=== PATIENT | female | born 1985 | race Caucasian/White ===

== ENCOUNTER → 2017-06-13 | Outpatient (CLI) | payer OTHER ==
[~2017-06-13] MED LIST: ACHYD1T PO; FRS325T PO; IBP800T PO; PREN-115 PO
--- NOTE | 2017-06-13 09:40 | Diagnostic Imaging Report ---
OB ultrasound. INDICATION: Spotting. FINDINGS: There is suggestion of an intrauterine with a gestational sac with thickened decidua reaction seen. The mean sac diameter is 0.6 CM. No embryo or yolk sac is seen. The sac diameter would correspond with 5 weeks and one day of gestation. Embryo and yolk sac are not seen which is probably due to the small size of the rather than a pseudo-gestational sac with an occult ectopic . The right ovary is 3.4 x 2.2 x 1.9 CM. The left ovary is 2.4 x 1.7 x 2.2 CM. Both ovaries have a normal appearing follicles with no solid mass or suspicion for ectopic . There is suggestion of a 1.4 cm hemorrhagic corpus cyst within the right ovary. Both ovaries demonstrate Doppler vascularity with arterial waveforms demonstrated in the left ovary. No free fluid in the pelvis is seen. IMPRESSION: Cystic structure in the endometrial stripe with suggestion of a decidual reaction likely related to an early normal intrauterine corresponding to 5 weeks and one day of gestation. Confirmation with a followup ultrasound in a week is recommended. Dictated by: Dictated on workstation # [id number]
== END ==
LOC: RAD 08:39
PROVIDERS: ATTEND Family Medicine
DX: O26.851 Spotting complicating pregnancy, first trimester (principal); Z3A.01 Less than 8 weeks gestation of pregnancy
CPT/HCPCS: 76817

== ENCOUNTER → 2017-06-21 | Outpatient (CLI) | payer OTHER ==
--- NOTE | 2017-06-21 13:41 | Diagnostic Imaging Report ---
INDICATION: Dating. Decreasing beta hCG levels. COMPARISON: 06/13/2017. FINDINGS: The uterus measures 7.7 cm x 4.4 cm x 6.7 cm. Endometrium measures about 7 mm in thickness. The small cystic structure within the endometrium seen on prior ultrasound is not identified today without central reaction seen. Clinical history is that of a decrease in beta hCG levels from 1500-300 today with bleeding, likely related to a spontaneous . Continued followup is recommended. The left ovary measures about 2.8 cm x 2.2 cm x 2.4 cm and appears unremarkable. The right ovary is not visualized. There is no free fluid. IMPRESSION: There is no evidence of intrauterine gestation at this time. The cystic lesion seen within the endometrium on the prior study is no longer demonstrated and combined with clinical history is likely related to spontaneous . Continued followup is suggested. Dictated by: Dictated on workstation # [id number]
== END ==
LOC: RAD 09:44
PROVIDERS: ATTEND Family Medicine
DX: O02.81 Inappropriate change in quantitative human chorionic gonadotropin (hCG) in early pregnancy (principal); Z3A.00 Weeks of gestation of pregnancy not specified
CPT/HCPCS: 76801; 76817

== ENCOUNTER → 2017-09-12 | Outpatient (CLI) | payer OTHER ==
--- NOTE | 2017-09-12 13:26 | Diagnostic Imaging Report ---
PROCEDURE: US OB SINGLE FETUS <14 WKS. TECHNIQUE: Multiple real-time grayscale images were obtained over the gravid uterus in various projections. INDICATION: dating. FINDINGS: There is an intrauterine gestational sac containing a pole. [place]-rump length measurement is 2.1 cm consistent with 8 weeks 5 days gestation. heart rate is recorded at 165 beats per minute. No perigestational sac hemorrhage is identified. The ovaries are obscured by bowel gas. IMPRESSION: Single live IUP of 8 weeks 5 days gestational age. The estimated date of confinement sonographically is 04/19/2018. Dictated by: Dictated on workstation # [id number]
== END ==
LOC: RAD 09:47
PROVIDERS: ATTEND Family Medicine
DX: Z34.91 Encounter for supervision of normal pregnancy, unspecified, first trimester (principal); Z3A.08 8 weeks gestation of pregnancy
CPT/HCPCS: 76801

== ENCOUNTER → 2017-11-29 | Outpatient (CLI) | payer OTHER ==
--- NOTE | 2017-11-29 16:19 | Diagnostic Imaging Report ---
INDICATION: Undergoing anatomical survey assessment. TECHNIQUE: Multiple real-time grayscale images were obtained over the gravid uterus. COMPARISON: None FINDINGS: Single viable intrauterine currently in cephalic presentation. Normal amount of amniotic fluid. Placenta is posterior. The placenta is low-lying, approximately 2.4 cm from the cervix. Cervical length at 3.4 cm. anatomical assessment appears unremarkable. The kidneys, bladder, stomach, four-chamber heart, three-vessel cord and cord insertion site as well as the spine appearing unremarkable. There does appear to be probable small bilateral choroid plexus cysts. The intracranial structures however are limited in evaluation owing to low head positioning. Biometrical measurements are as follows: Biparietal 4.62 cm, age 20 weeks 0 days. Head circumference 16.75 cm, age 19 weeks 3 days. Abdominal circumference 14.92 cm, age 20 weeks 2 days. Femur length 3.36 cm, age 20 weeks 4 days. Sonographic estimate age: 20 weeks 1 days. Sonographic estimated date of delivery: 04-17-18. Estimated Weight: 341 gm (+/- 50 gm). LMP percentile: 68%. heart rate: 155 beats per minute. number: 1 of 1. IMPRESSION: 1. Single viable intrauterine currently in cephalic presentation. Sonographic estimated age 20 weeks 1 day for an estimated date of delivery 04/17/2018. 2. anatomical assessment appearing relatively unremarkable. Exception is intracranial structures not well visualized, however there is question of perhaps bilateral choroid plexus cysts. 3. The placenta is posterior and somewhat low-lying but without findings to suggest previa. Dictated by: Dictated on workstation # [id number]
== END ==
LOC: RAD 15:13
PROVIDERS: ATTEND Family Medicine
DX: Z36.89 Encounter for other specified antenatal screening (principal); Z3A.20 20 weeks gestation of pregnancy
CPT/HCPCS: 76805

== ENCOUNTER → 2018-02-23 | Outpatient (CLI) | payer OTHER ==
--- NOTE | 2018-02-23 13:56 | Diagnostic Imaging Report ---
INDICATION: Followup growth as well as placental location and brain. TECHNIQUE: Multiple real-time grayscale images were obtained over the gravid uterus. COMPARISON: 11/29/2017. FINDINGS: There is a single live fetus in a cephalic presentation. heart rate was recorded at 165 beats per minute. Placenta is fundal and does not appear to be low lying. Amniotic fluid index is normal at 12.3 cm. Cervical length is 4.1 cm. Previously noted choroid plexus cysts are no longer visualized. Biometrical measurements are as follows: Biparietal 8.26 cm, age 33 weeks 2 days. Head circumference 28.47 cm, age 31 weeks 2 days. Abdominal circumference 29.43 cm, age 33 weeks 3 days. Femur length 6.57 cm, age 33 weeks 6 days. Sonographic estimate age: 33 weeks 0 days. Sonographic estimated date of delivery: 04/13/2018. Estimated Weight: 2162 gm (+/- 316 gm). LMP percentile: 76%. heart rate: 165 beats per minute. number: 1 of 1. IMPRESSION: Single live IUP of approximately 33 weeks gestational age. No complicating features are identified. Dictated by: Dictated on workstation # [id number]
== END ==
LOC: RAD 10:43
PROVIDERS: ATTEND Family Medicine
DX: Z36.89 Encounter for other specified antenatal screening (principal); Z3A.33 33 weeks gestation of pregnancy
CPT/HCPCS: 76816

== ENCOUNTER 2018-04-12 06:00 | Inpatient (IN) | payer OTHER ==
[~2018-04-12] VITALS: Ht 157.5 cm; Wt 67.7 kg
[2018-04-12] VITALS (36 sets, daily range): BP systolic 98–134; BP diastolic 2–81
--- OUTSIDE RECORDS SUMMARY | 2018-04-12 06:23 | XMS REPORT | Continuity of Care Document ---
Author Author [facility] Organization [facility] Address Unknown Phone Unavailable Allergies Active Description Code Type Severity Reaction Onset Reported/Identified Relationship to Patient Clinical Status Yes No Known Drug Allergies [id number] Drug Allergy Unknown N/A 10/21/2009 Medications There is no data. Problems Date Dx Coded Attending Type Code Diagnosis Diagnosed By 05/29/2013 DANNA DRAKE MD, Ot 656.61 EXCESS GRTH-DELIV 05/29/2013 DANNA DRAKE MD, Ot 664.21 DEL W 3 DEG LACERAT-DEL 05/29/2013 DANNA DRAKE MD, Ot V27.0 DELIVER-SINGLE LIVEBORN 07/14/2017 DANNA DRAKE MD, Ot O02.81 INAPPROP CHG QUANTITAV HCG IN EARLY PREG 07/14/2017 DANNA DRAKE MD, Ot Z3A.00 WEEKS OF GESTATION OF NOT SPEC 07/14/2017 DANNA DRAKE MD, Ot O26.851 SPOTTING COMPLICATING , FIRST T 07/14/2017 DANNA DRAKE MD, Ot Z3A.01 LESS THAN 8 WEEKS GESTATION OF 09/08/2017 Ot 649.63 UTERINE SIZE DATE DISCREPANCY, ANTEPARTU 09/08/2017 DANNA DRAKE MD, Ot 649.63 UTERINE SIZE DATE DISCREPANCY, ANTEPARTU 09/08/2017 DANNA DRAKE MD, Ot O02.81 INAPPROP CHG QUANTITAV HCG IN EARLY PREG 09/08/2017 DANNA DRAKE MD, Ot Z3A.00 WEEKS OF GESTATION OF NOT SPEC 09/08/2017 DANNA DRAKE MD, Ot O26.851 SPOTTING COMPLICATING , FIRST T 09/08/2017 DANNA DRAKE MD, Ot Z3A.01 LESS THAN 8 WEEKS GESTATION OF 09/13/2017 DANNA DRAKE MD, Ot Z34.91 ENCNTR FOR SUPRVSN OF NORMAL PREG, UNSP, 09/13/2017 DANNA DRAKE MD, Ot Z3A.08 8 WEEKS GESTATION OF 09/18/2017 DANNA DRAKE MD, Ot Z34.91 ENCNTR FOR SUPRVSN OF NORMAL PREG, UNSP, 09/18/2017 DANNA DRAKE MD, Ot Z3A.08 8 WEEKS GESTATION OF 11/30/2017 DANNA DRAKE MD, Ot Z36.89 ENCOUNTER FOR OTHER SPECIFIED 11/30/2017 DANNA DRAKE MD, Ot Z3A.20 20 WEEKS GESTATION OF 11/30/2017 DANNA DRAKE MD, Ot Z36.89 ENCOUNTER FOR OTHER SPECIFIED 11/30/2017 DANNA DRAKE MD, Ot3A.20 20 WEEKS GESTATION OF 02/26/2018 DANNA DRAKE MD, Ot Z36.89 ENCOUNTER FOR OTHER SPECIFIED 02/26/2018 DANNA DRAKE MD, Ot Z3A.33 33 WEEKS GESTATION OF Procedures Code Description Performed By Performed On 73.4 MEDICAL INDUCTION LABOR 05/27/2013 75.62 REPAIR OB LAC RECT/ANUS 05/27/2013 Results There is no data. Encounters ACCT No. Visit Date/Time Discharge Status Pt. Type Provider Facility Loc./Unit Complaint [id number] 02/23/2018 10:43:00 02/23/2018 23:59:59 CLS Outpatient DANNA DRAKE MD [facility] RAD CHOROID PLEXUS CYST AND PLACENTA LOCATION [id number] 11/29/2017 15:13:00 11/29/2017 23:59:59 CLS Outpatient DANNA DRAKE MD [facility] RAD SURVEY [id number] 09/12/2017 09:47:00 09/12/2017 23:59:59 RADHA Outpatient DANNA DRAKE MD [facility] RAD DATES [id number] 06/21/2017 09:44:00 06/21/2017 23:59:59 CLS Outpatient DANNA DRAKE MD [facility] RAD DATING [id number] 06/13/2017 08:39:00 06/13/2017 23:59:59 CLS Outpatient DANNA DRAKE MD [facility] RAD VAGINAL SPOTTING 1ST TRIMESTER [id number] 05/27/2013 06:09:00 05/29/2013 10:50:00 DIS Inpatient DANNA DRAKE MD [facility] WS INDUCTION [id number] 01/24/2013 10:51:00 01/24/2013 23:59:59 CLS Outpatient DANNA DRAKE MD [facility] RAD FUNDAL HEIGHT DISCREPANCY [id number] 10/26/2012 09:57:00 Document Registration
[2018-04-12] MEDS ORDERED: D5 LR IV SOLUTION 1,000 ML IV SCH (06:26)
[2018-04-12] MEDS ORDERED: MINERAL OIL CONCENTRATE 99.9% 15 ML UDC TOP PRN (06:30)
[2018-04-12 06:52] LABS: BASOPHILS % (AUTO) 0 % (0-10); EOSINOPHILS # (AUTO) 0.1 10^3/uL (0.0-0.3); EOSINOPHILS % (AUTO) 1 % (0-10); HEMATOCRIT 33 % (35-52); HEMOGLOBIN 11.9 G/DL (11.5-16.0); LYMPHOCYTES # (AUTO) 1.4 X 10^3 (1.0-4.0); LYMPHOCYTES % (AUTO) 15 % (12-44); MEAN CORPUSCULAR HEMOGLOBIN 31 PG (25-34); MEAN CORPUSCULAR HGB CONC 36 G/DL (32-36); MEAN CORPUSCULAR VOLUME 87 FL (80-99); MONOCYTES # (AUTO) 0.7 X 10^3 (0.0-1.0); MONOCYTES % (AUTO) 8 % (0-12); NEUTROPHILS # (AUTO) 6.8 X 10^3 (1.8-7.8); NEUTROPHILS % (AUTO) 76 % (42-75); PLATELET COUNT 167 10^3/uL (130-400); RED BLOOD COUNT 3.81 10^6/uL (4.35-5.85); RED CELL DISTRIBUTION WIDTH 12.8 % (10.0-14.5); WHITE BLOOD COUNT 8.9 10^3/uL (4.3-11.0)
--- NOTE | 2018-04-12 07:10 | History & Physical-OB ---
OB - Chief Complaint & HPI Date/Time Date of Admission: Date of Admission: Apr 12, 2018 at 06:06 Date seen by a Provider: Apr 12, 2018 Time Seen by a Provider: 07:05 Chief Complaint/History OB-Reason for Admission/Chief: Induction of Labor Hx : 3 Hx Para: 3 Expected Date of Delivery: Apr 19, 2018 Gestational Age in Weeks: 39 Gestational Age in Days: 0 Admission Nurse Assessment Rev: Yes History of Labs GBS negative Allergies and Home Medications Allergies Coded Allergies: No Known Drug Allergies (Verified Allergy, Unknown, 10/21/09) Home Medications Ferrous Sulfate 325 Mg Tablet, 1 TAB PO DAILY, (Reported) Patient Home Medication List Home Medication List Reviewed: Yes OB - History Hx of Present Care: Yes Ultrasounds: Normal mid trimester US Obstetrical Complications: None Medical Complications: None Obstetrical History Hx Termination: No Hx Multiple Gestation: No Hx Stillbirth: No Hx Complication: No Hx Induced Hypertens: No Hx Maternal Gestational Diabet: No Delivery History Hx Dystocia: No Hx Large For Gestational Age I: No Hx Small for Gestational Age I: No Hx Section: No Hx Vaginal Delivery Post C-Sec: No Hx Blood Disorders: No Adverse Rxn to Tranfusion: No Patient Past Medical History no chronic medical problems Social History/Family History HIV/AIDS: No Recent Infectious Disease Expo: No Sexually Transmitted Disease: No Alcohol Use: Denies Use Recreational Drug Use: No Immunizations Tetanus Booster (TDap): Less than 5yrs Date of Influenza Vaccine: Apr 09, 2013 OB - Admission Exam Physical Exam HEENT: Moist Membranes Heart: Rhythm Normal Lungs: Clear Abdomen: Gravid Extremities: Normal Reflexes: Normal Cervical Dilatation: 2cm Effacement: 50% Station: -3 Membranes: Intact Heart Rate: 150's Accelerations: Accelerations Present Decelerations: No Decelerations Sr. Director Product Management Variability: Average (6-25) Contractions on Admission: 6-10 Minutes Apart Intensity: Mild Hong Scoring Tool (Modified) Dilation (cm): 1-2cm (1) Effacement (%): 31-51% (1) Descent/Station: -3 (0) Cervix Consistency: Medium(1) Cervix Position: Middle/Mid-Position (1) Add 1 point for: Each previous vaginal delivery (1) Hong Score: 7 Labs Laboratory Tests Test 04/12/18 06:35 Range/Units White Blood Count 8.9 4.3-11.0 10^3/uL Red Blood Count 3.81 L 4.35-5.85 10^6/uL Hemoglobin 11.9 11.5-16.0 G/DL Hematocrit 33 L 35-52 % Mean Corpuscular Volume 87 80-99 FL Mean Corpuscular Hemoglobin 31 25-34 PG Mean Corpuscular Hemoglobin Concent 36 32-36 G/DL Red Cell Distribution Width 12.8 10.0-14.5 % Platelet Count 167 130-400 10^3/uL Mean Platelet Volume 10.0 7.4-10.4 FL Neutrophils (%) (Auto) 76 H 42-75 % Lymphocytes (%) (Auto) 15 12-44 % Monocytes (%) (Auto) 8 0-12 % Eosinophils (%) (Auto) 1 0-10 % Basophils (%) (Auto) 0 0-10 % Neutrophils # (Auto) 6.8 1.8-7.8 X 10^3 Lymphocytes # (Auto) 1.4 1.0-4.0 X 10^3 Monocytes # (Auto) 0.7 0.0-1.0 X 10^3 Eosinophils # (Auto) 0.1 0.0-0.3 10^3/uL Basophils # (Auto) 0.0 0.0-0.1 10^3/uL OB - Assessment/Plan/Diagnosis Assessment Assessment: induction of labor Admission Dx 1. IUP at 39 weeks. Admission Status: Inpatient Order (span 2 midnights) Reason for Inpatient Admission: L&D Plan Plan: Induction Induction Method: AROM Other Plan -epidural -pitocin as needed DANNA DRAKE MD Apr 12, 2018 07:10
[2018-04-12] MEDS ORDERED: OXYTOCIN/NORMAL SALINE 500 ML IV SCH ×2 (07:25→12:55)
[2018-04-12] MEDS ORDERED: FLU QUADRIvalent (5+ YOA) 2018-2019 (AFLURIA) 0.5 ML IM ONE (07:45)
[2018-04-12] MEDS ORDERED: LACTATED RINGERS 1,000 ML IV ONE (08:05)
[2018-04-12] MEDS ORDERED: SUFENTA 0.6MCG/ML BUPIVA 0.125 100 ML ONE (08:05)
[2018-04-12 09:06] LABS: BILIRUBIN,URINE NEGATIVE (NEGATIVE); CLARITY,URINE SLIGHTLY CLOUDY; COLOR,URINE YELLOW; GLUCOSE, URINE (UA) NEGATIVE (NEGATIVE); KETONES,URINE 3+ (NEGATIVE); LEUKOCYTE ESTERASE ,URINE 1+ (NEGATIVE); NITRITE,URINE NEGATIVE (NEGATIVE); PH,URINE 7 (5-9); PROTEIN,URINE NEGATIVE (NEGATIVE); UROBILINOGEN,URINE NORMAL (NORMAL)
[2018-04-12 09:22] LABS: BACTERIA,URINE FEW /HPF
[2018-04-12] MEDS ORDERED: fentaNYL INJECTION 100 MCG/2 ML AMP ONE (09:23)
[2018-04-12] MEDS ORDERED: MEPIVACAINE (CARBOCAINE) 2% 50 ML VIAL ONE (12:16)
--- NOTE | 2018-04-12 12:59 | OB Labor & Delivery Record ---
L&D History Date of Service Date of Service: Apr 12, 2018 History Expected Date of Delivery: Apr 19, 2018 Gestational Age in Weeks: 39 Hx : 3 Hx Para: 3 Complications Events: Routine care Operative Indications (Cesarea: N/A-Vaginal Delivery Intrapartal Events: None L&D Stage1 Stage One Onset of Labor - Date: Apr 12, 2018 Onset of Labor - Time: 07:00 Monitors and Tracing Monitor Mode: Internal Heart Rate: 140 Monitor Accelerations: Uniform Monitor Decelerations: None Station: 0 Usp Variability: Average (6-10) Short Term Variability: Present Presentation: Vertex Vital Signs VS - Last 72 Hours, by Label 04/12/18 04/12/18 04/12/18 04/12/18 07:40 07:55 08:10 08:25 Pulse 78 68 73 80 Resp 18 18 18 18 B/P (MAP) 115/66 (82) 104/63 (77) 122/69 (86) 112/79 (90) O2 Delivery Room Air Room Air Room Air Room Air 04/12/18 04/12/18 04/12/18 04/12/18 08:40 08:55 09:10 09:25 Pulse 66 63 76 71 Resp 18 18 18 18 B/P (MAP) 117/69 (85) 118/71 (87) 128/79 (95) 129/73 (91) O2 Delivery Room Air Room Air Room Air Room Air 04/12/18 04/12/18 04/12/18 04/12/18 09:30 09:40 09:45 09:50 Temp 97.8 Pulse 70 90 77 76 Resp 18 18 18 18 B/P (MAP) 134/68 (90) 115/75 (88) 113/65 (81) 125/63 (83) Pulse Ox 98 99 99 99 O2 Delivery Room Air Room Air Room Air Room Air 04/12/18 04/12/18 04/12/18 04/12/18 09:55 10:00 10:05 10:10 Pulse 67 64 57 59 Resp 18 18 18 18 B/P (MAP) 117/66 (83) 113/60 (77) 115/61 (79) 113/2 (39) Pulse Ox 99 99 99 99 O2 Delivery Room Air Room Air Room Air Room Air 10/404/12/18 04/12/18 04/12/18 10:15 10:30 10:45 11:00 Pulse 59 66 65 59 Resp B/P (MAP) 106/56 (73) 107/68 (81) 108/62 (77) 110/55 (73) Pulse Ox 99 99 100 98 O2 Delivery Room Air Room Air Room Air Room Air Signs of Distress by FHT Signs of Distress no Rupture of Membranes Spontaneous Ruture of Membrane: No Amniotic Membrane Rupture Time: 716 Amniotic Membrane Fluid Desc.: Clear Induction/Anesthesia Epidural Cath Placement - Time: 0940 L&D Stage2 Stage Two Stage II Date: Apr 12, 2018 Stage II Time: 12:35 Monitors and Tracing Monitor Mode: Internal Heart Rate: 140 Monitor Accelerations: Uniform Monitor Decelerations: Variable Cane Flume Watchman Variability: Average (6-10) Short Term Variability: Present Position: Left Occiput Anterior Presentation: Vertex Cord Descript/Complications Cord Vessel Description: 3 Vessels Delivery Type Infant Delivery Method: Spontaneous Vaginal Anterior Shoulder: Left Episiotomy/Perineal Laceration Laceraction(s)/Extensions: Yes Episiotomy Description: Midline Sutures Used: Vicryl Condition of Infant Delivery 1 minute Comment: 9 5 minute Comment: 9 Condition of Exam: No Observed Abnormalities Resuscitation Resuscitation: N/A - Spontaneous Resp L&D Stage3 Stage Three Stage III Date: Apr 12, 2018 Stage III Time: 12:38 Pictocin Pitocin Administration mu/min: 12 Pitocin ml/hr: 12 Pitocin Administration Comment: pitocin increased Placenta Delivery Placenta Delivery: Spontaneous Delivery Summary Summary Estimated blood loss (mL): 250 Condition of Delivery Examined: Cervix Examined Post Hemorrhage: No Intervention Required none DANNA DRAKE MD Apr 12, 2018 12:59
[2018-04-12] MEDS ORDERED: HYDROcodone/APAP 5 MG/325 MG (LORTAB) TAB PO PRN (13:00)
[2018-04-12] MEDS ORDERED: WITCH HAZEL(TUCKS) 40 EA JAR TOP PRN (13:00)
[2018-04-12] MEDS ORDERED: BENZOCAINE/MENTHOL (DERMOPLAST) 56 ML CAN TP PRN (13:00)
[2018-04-12] MEDS ORDERED: TETANUS,DIPTH,PERTUSS P/F (BOOSTRIX) 0.5 ML VIAL IM ONE (13:00)
[2018-04-12] MEDS ORDERED: MEASLES,MUMPS,RUBELLA 1 EA INJ SQ ONE (13:00)
[2018-04-12] MEDS ORDERED: CATHETER FLUSH 10 ML SYR IV SCH ×2 (14:00)
[2018-04-12] MEDS: IBUPROFEN 600 MG (MOTRIN) TAB PO SCH ×2 (14:17→19:40)
[2018-04-13 02:20] VITALS: BP 94/56
[2018-04-13] MEDS: IBUPROFEN 600 MG (MOTRIN) TAB PO SCH ×2 (02:51→09:46)
[2018-04-13 05:09] LABS: BASOPHILS % (AUTO) 0 % (0-10); EOSINOPHILS # (AUTO) 0.1 10^3/uL (0.0-0.3); EOSINOPHILS % (AUTO) 1 % (0-10); HEMATOCRIT 29 % (35-52); HEMOGLOBIN 9.9 G/DL (11.5-16.0); LYMPHOCYTES % (AUTO) 20 % (12-44); MEAN CORPUSCULAR HEMOGLOBIN 30 PG (25-34); MEAN CORPUSCULAR HGB CONC 34 G/DL (32-36); MEAN CORPUSCULAR VOLUME 89 FL (80-99); MEAN PLATELET VOLUME 9.9 FL (7.4-10.4); MONOCYTES # (AUTO) 0.7 X 10^3 (0.0-1.0); MONOCYTES % (AUTO) 7 % (0-12); NEUTROPHILS # (AUTO) 7.4 X 10^3 (1.8-7.8); NEUTROPHILS % (AUTO) 72 % (42-75); PLATELET COUNT 154 10^3/uL (130-400); RED BLOOD COUNT 3.29 10^6/uL (4.35-5.85); WHITE BLOOD COUNT 10.2 10^3/uL (4.3-11.0)
[2018-04-13 06:50] VITALS: BP 103/68
[2018-04-13] MEDS ORDERED: FERROUS SULF 325 MG (IRON) TAB PO SCH (08:00)
--- NOTE | 2018-04-13 08:01 | Discharge Summary ---
Diagnosis/Chief Complaint Date of Admission Apr 12, 2018 at 06:06 Date of Discharge Apr 13, 2018 Discharge Date: Apr 13, 2018 Discharge Time: 14:00 Admission Diagnosis Admission Diagnosis 1. IUP at term 39 weeks Discharge Diagnosis 1. IUP at term 39 weeks 2. Anemia 2nd to blood loss following delivery Reason Hospital Visit 33 yo [id number] who initially presented for L&D at 39 weeks gestation for AROM. EDC 04/19/2018. GBS negative and care unremarkable. Discharge Summary-OBS Procedures 1. Epidural per anesthesia 2. 3. Repair of MLE Discharge Physical Examination Allergies: Coded Allergies: No Known Drug Allergies (Verified Allergy, Unknown, 10/21/09) Vitals & I&Os Vital Signs Date Time Temp Pulse Resp B/P (MAP) Pulse Ox O2 Delivery O2 Flow Rate FiO2 04/13/18 06:50 96.9 71 18 103/68 (80) Room Air 04/12/18 18:50 98 General Appearance: No Acute Distress Respiratory: Clear to Auscultation Cardiovascular: Regular Rate Abdominal: Soft (with uterus firm) Hospital Course delivery on 04/12 uncomplicated. hg prior to delivery 11.9 and following delivery the morning after was 9.9. No complaints and minimal vaginal bleeding following delivery. Pending Labs Laboratory Tests 04/13/18 04:57: White Blood Count 10.2, Red Blood Count 3.29, Hemoglobin 9.9, Hematocrit 29, Mean Corpuscular Volume 89, Mean Corpuscular Hemoglobin 30, Mean Corpuscular Hemoglobin Concent 34, Red Cell Distribution Width 13.0, Platelet Count 154, Mean Platelet Volume 9.9, Neutrophils (%) (Auto) 72, Lymphocytes (%) (Auto) 20, Monocytes (%) (Auto) 7, Eosinophils (%) (Auto) 1, Basophils (%) (Auto) 0, Neutrophils # (Auto) 7.4, Lymphocytes # (Auto) 2.0, Monocytes # (Auto) 0.7, Eosinophils # (Auto) 0.1, Basophils # (Auto) 0.0 Discharge Instructions to patient/family Please see electronic discharge instructions given to patient. Discharge Medications Reviewed and agree with Discharge Medication list on patient's Discharge Instruction sheet Clinical Quality Measures DVT/VTE Risk/Contraindication: Risk Factor Score Per Nursin RFS Level Per Nursing on Admit: 1=Low/No VTE PPX DANNA DRAKE MD Apr 13, 2018 08:01
--- NOTE | 2018-04-13 08:02 | Discharge Inst-Women's Service ---
Discharge Inst-Women's Serv Depart Medication/Instructions New, Converted or Re-Newed RX: Other Consults/Follow Up Additional Follow Up: Yes (Dr Drake in 6 weeks.) Activity Activity: Activity as Tolerated Driving Instructions: You May Drive Diet Discharge Diet: Regular Diet Return to The Hospital For: as below Symptoms to Report to : Bleeding Excessive, Fever Over 101 Degrees F, Vaginal Bleeding Increase, Vaginal Discharge Foul For Any Problems or Questions: Contact Your Physician DANNA DRAKE MD Apr 13, 2018 08:02
[2018-04-13] MEDS ORDERED: FLU QUADRIvalent (5+ YOA) 2018-2019 (AFLURIA) 0.5 ML IM ONE (09:46)
[2018-04-13 09:47] VITALS: BP 105/65
--- NOTE | 2018-04-13 11:21 | Anesthesia-Regional Post-Op ---
Regional Patient Condition Mental Status: Alert, Oriented x3 Circulation: Same as Pre-Op Headache: Absent Sensation: Full Recovery Motor Block: Absent Post Op Complications Complications None Follow Up Care/Instructions Patient Instructions None needed. Anesthesia/Patient Condition Patient is doing well, no complaints, stable vital signs, no apparent adverse anesthesia problems. No complications reported per nursing. RADHA AGARWAL CRNA Apr 13, 2018 11:21
[2018-04-13 12:46] VITALS: BP 101/66
== END 2018-04-13 14:27 | disposition home or self-care (01) | DRG 806 ==
LOC: LDRP 06:06
PROVIDERS: ADMIT Family Medicine; ATTEND Family Medicine
PROC: 10E0XZZ Delivery of Products of Conception, External Approach (ICD-10-PCS; principal; 2018-04-12)
PROC: 0W8NXZZ Division of Female Perineum, External Approach (ICD-10-PCS; 2018-04-12)
PROC: 10907ZC Drainage of Amniotic Fluid, Therapeutic from Products of Conception, Via Natural or Artificial Opening (ICD-10-PCS; 2018-04-12)
DX: O90.81 Anemia of the puerperium (principal); D62 Acute posthemorrhagic anemia; Z3A.39 39 weeks gestation of pregnancy; Z37.0 Single live birth; Z23 Encounter for immunization
CPT/HCPCS: 36415; 81000; 85025; 86850; 86900; 86901; 87088; 90686; 90715

== ENCOUNTER → 2020-05-12 | Outpatient (CLI) | payer OTHER ==
--- NOTE | 2020-05-12 15:29 | Diagnostic Imaging Report ---
INDICATION: Routine screening. COMPARISON: No prior mammograms are available for comparison. This is a baseline study. TECHNIQUE: 2D and 3D bilateral screening mammography was performed with CAD. FINDINGS: Both breasts are heterogeneously dense, limiting the sensitivity of mammography. There are benign calcifications bilaterally, greatest on the right. These are primarily punctate. No mass or malignant appearing microcalcifications are seen. The axillae are unremarkable. IMPRESSION: No mammographic features suspicious for malignancy are identified. ACR BI-RADS Category 2: Benign findings. Result letter will be mailed to the patient. Note: At least 10% of breast cancer is not imaged by mammography. Dictated by: Dictated on workstation # [id number]
== END ==
LOC: RAD 12:35
PROVIDERS: ATTEND Family Medicine
DX: Z12.31 Encounter for screening mammogram for malignant neoplasm of breast (principal)
CPT/HCPCS: 77063; 77067

== ENCOUNTER → 2022-03-18 | Outpatient (CLI) | payer OTHER ==
--- NOTE | 2022-03-21 09:09 | Diagnostic Imaging Report ---
INDICATION: Routine screening. COMPARISON: 05/12/2020. TECHNIQUE: 2D and 3D bilateral screening mammography was performed with CAD. FINDINGS: Both breasts are heterogeneously dense, limiting the sensitivity of mammography. Calcifications in the right breast appear stable. There is no mass or malignant-appearing microcalcifications. The axillae are unremarkable. IMPRESSION: No mammographic features suspicious for malignancy are identified. ACR BI-RADS Category 2: Benign findings. Result letter will be mailed to the patient. Note: At least 10% of breast cancer is not imaged by mammography. Dictated by: Dictated on workstation # [id number]
== END ==
LOC: RAD 15:40
PROVIDERS: ATTEND Family Medicine
DX: Z12.31 Encounter for screening mammogram for malignant neoplasm of breast (principal)
CPT/HCPCS: 77063; 77067

== ENCOUNTER → 2022-03-23 | Outpatient (CLI) | payer OTHER ==
--- NOTE | 2022-03-23 15:12 | Diagnostic Imaging Report ---
INDICATION: Palpable lump in the right axilla. FINDINGS: Sonographic interrogation of the area of lump in the right axilla was performed. No sonographic abnormality is identified. No solid or cystic mass is detected. IMPRESSION: No sonographic abnormality is detected. ACR BI-RADS Category 1: Negative. Result letter will be mailed to the patient. Note: At least 10% of breast cancer is not imaged by mammography. Dictated by: Dictated on workstation # [id number]
== END ==
LOC: RAD 14:03
PROVIDERS: ATTEND Family Medicine
DX: N63.31 Unspecified lump in axillary tail of the right breast (principal)